=== PATIENT | male | born 2000 | race African-American/Black ===

== ENCOUNTER 2018-03-21 02:38 | Emergency (ER) | payer BC, MEDICAID ==
[2018-03-21] MEDS ORDERED: Bacitracin Zinc 1 Packet ONE (03:08)
[2018-03-21] MEDS ORDERED: Lidocaine 1% w/Epinephrine 1:100K 20 ML VIAL ONE (03:08)
== END 2018-03-21 03:59 | disposition home or self-care (01) ==
LOC: ERS 02:38
DX: L02.415 Cutaneous abscess of right lower limb (principal)
CPT/HCPCS: 87070; 87077; 87186; 87205; 99283; J2001